=== PATIENT | male | born 1990 | race Caucasian/White ===

== ENCOUNTER 2016-06-11 22:47 | Emergency (ER) | payer OTHER | END 2016-06-11 23:02 | disposition home or self-care (01) | LOC: ER 22:47 | DX: H60.92 Unspecified otitis externa, left ear (principal); F31.0 Bipolar disorder, current episode hypomanic; F41.9 Anxiety disorder, unspecified; F98.8 Other specified behavioral and emotional disorders with onset usually occurring in childhood and adolescence; F17.210 Nicotine dependence, cigarettes, uncomplicated ==

== ENCOUNTER 2016-10-01 09:41 | Emergency (ER) | payer OTHER | END 2016-10-01 10:36 | disposition home or self-care (01) | LOC: ER 09:41 | DX: L02.511 Cutaneous abscess of right hand (principal); F17.210 Nicotine dependence, cigarettes, uncomplicated ==